=== PATIENT | male | born 1945 | race Caucasian/White ===

== ENCOUNTER → 2023-08-09 12:58 | Outpatient (CLI) | payer MEDICARE, BC, SELFPAY ==
--- NOTE | 2023-08-09 13:03 | DI.CT.S_ITS ---
PROCEDURE: CT LUNG LOW DOSE SCREENING INDICATIONS: Personal history of nicotine dependence TECHNIQUE: Noncontrast 2.0-2.5 mm thick sections acquired from the pulmonary apices to the posterior costophrenic angles. 7 mm thick axial MIP, and 5 mm coronal and sagittal reformats were then acquired. A low radiation dose technique was utilized. COMPARISON: None. FINDINGS: Image quality: Diagnostic, given the low radiation dose technique. Lungs and pleura: No suspicious pulmonary nodules are seen. No focal infiltrates are seen. No pneumothorax or pleural effusions are seen. Mediastinum: Heart size is normal. No pericardial effusion. No mediastinal adenopathy by size criteria. Thoracic aorta and central pulmonary arteries are normal in size. Esophagus is normal in caliber. There is a small hiatal hernia. Bones and chest wall: No suspicious bony lesions. There is a remote L1 anterior wedge deformity, with approximately 20% loss of height anteriorly. No acute fractures are seen. No axillary or supraclavicular adenopathy by size criteria. Thyroid gland demonstrates no significant noncontrast abnormality. Abdomen: Visualized upper abdomen solid organs and bowel loops appear normal in the absence of contrast. IMPRESSION: No suspicious pulmonary nodule can be seen. Additional findings: Small hiatal hernia Remote L1 anterior wedge deformity LUNG-RADS 1; Recommend annual screening for lung cancer with low dose CT, as long as the patient meets the screening criteria. Dictated by: Dayo Block M.D. on 08/09/2023 at 15:11 Approved by: Dayo Block M.D. on 08/09/2023 at 15:13
== END ==
PROVIDERS: PCP Family Medicine; Referring Provider Family Medicine; Visit Provider Family Medicine
DX: F17.200 Nicotine dependence, unspecified, uncomplicated (principal); Z12.2 Encounter for screening for malignant neoplasm of respiratory organs; K44.9 Diaphragmatic hernia without obstruction or gangrene; M43.8X6 Other specified deforming dorsopathies, lumbar region
CPT/HCPCS: 71271

== ENCOUNTER → 2023-12-05 13:32 | Outpatient (CLI) | payer MEDICARE, BC, SELFPAY ==
--- NOTE | 2023-12-05 | DI.MRI.S_ITS ---
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 In cases with scoliosis, additional coronal T2 fast spin echo may be performed. COMPARISON: None. FINDINGS: Image quality: Excellent. Alignment and Curvature: Minimal levocurvature of the lumbar spine. Straightening of the normal lumbar lordosis. Mild anterolisthesis of T12 on L1 and L4 on L5. Bone Marrow: Modic type 1 degenerative endplate changes at L5-S1. Marrow is of normal overall signal. Mild chronic superior endplate compression deformity of L1. No acute vertebral body compression fractures. Spinal Cord: Conus medullaris terminates at the L1 level. Visualized cord demonstrates normal signal and size. Paraspinous Soft Tissues: No paravertebral masses. Simple appearing right renal cyst. T12-L1: Disc desiccation. No central canal or neural foraminal stenosis. L1-L2: Disc desiccation and height loss. No central canal or neural foraminal stenosis. L2-L3: Disc desiccation height loss. Posterior disc bulge. Facet arthropathy and thickening ligamentum flavum. Epidural lipomatosis. Mild central canal stenosis. No significant neural foraminal stenosis. L3-L4: Disc desiccation height loss. Posterior disc bulge. Facet arthropathy and thickening of ligamentum flavum. Epidural lipomatosis. Mild to moderate central canal stenosis. Mild bilateral neural foraminal stenosis. L4-L5: Disc desiccation height loss. Posterior disc bulge. Facet arthropathy and thickening of ligamentum flavum. Epidural lipomatosis. Severe central canal stenosis. Moderate bilateral neural foraminal stenosis. L5-S1: Disc desiccation height loss. Posterior disc bulge. Facet arthropathy. Mild central canal stenosis. Severe bilateral neural foraminal stenosis. IMPRESSION: 1. Multilevel degenerative changes of the lumbar spine as described above. 2. Severe central canal stenosis at L4-5. 3. Severe bilateral neural foraminal stenosis at L5-S1. Dictated by: Malcolm Stevens M.D. on 12/05/2023 at 15:40 Approved by: Malcolm Stevens M.D. on 12/05/2023 at 15:48
== END ==
LOC: MRI 13:33
PROVIDERS: PCP Family Medicine; Referring Provider Family Medicine; Visit Provider Family Medicine
DX: M54.41 Lumbago with sciatica, right side (principal); M54.42 Lumbago with sciatica, left side; M47.816 Spondylosis without myelopathy or radiculopathy, lumbar region; M47.817 Spondylosis without myelopathy or radiculopathy, lumbosacral region; M48.061 Spinal stenosis, lumbar region without neurogenic claudication; M48.07 Spinal stenosis, lumbosacral region; M25.551 Pain in right hip; M51.36 Other intervertebral disc degeneration, lumbar region; M53.3 Sacrococcygeal disorders, not elsewhere classified; G89.29 Other chronic pain
CPT/HCPCS: 72148

== ENCOUNTER → 2024-02-08 12:42 | Outpatient (CLI) | payer MEDICARE, BC, SELFPAY ==
--- NOTE | 2024-02-08 12:43 | DI.US.S_ITS ---
PROCEDURE: US RENAL COMPLETE INDICATIONS: Cyst of kidney, acquired TECHNIQUE: Real-time scanning was performed of the kidneys and bladder, with image documentation. COMPARISON: [facility], MR, MR LUMBAR SPINE WO CON, 12/05/2023, 13:53. FINDINGS: Kidneys: Kidneys are normal in size. Right kidney measures 11.8 cm long; left kidney measures 13.7 cm long. Right renal cortical thickness is 1.0 cm; left renal cortical thickness is 1.4 cm. Renal cortical echotexture is normal. No hydronephrosis or nephrolithiasis. No suspicious solid mass lesions. Bladder: Pre-void bladder volume is 122 mL. Post-void residual is 48 mL. Pre-void images demonstrate no intraluminal masses or stones. On pre-void images, left ureteral jet is noted with color Doppler interrogation. (Of note, ureteral jets may not be detectable in up to 25% of cases due to insufficient differences in specific gravity between ureteral and bladder urine). Miscellaneous: No free pelvic fluid. IMPRESSION: 1. Previously described posterior medial right renal cyst is not visualized on this study. No hydronephrosis. No gross solid appearing renal lesion. 2. No gross abnormality is seen in partially distended urinary bladder with small to moderate amount of postvoid residual. Dictated by: Sheldon Seymour M.D. on 02/08/2024 at 16:05 Approved by: Sheldon Seymour M.D. on 02/08/2024 at 16:07
== END ==
LOC: US 12:42
PROVIDERS: PCP Family Medicine; Referring Provider Family Medicine; Visit Provider Family Medicine
DX: N28.1 Cyst of kidney, acquired (principal)
CPT/HCPCS: 76770